=== PATIENT | female | born 1960 | race African-American/Black ===

== ENCOUNTER 2024-08-27 19:31 | Emergency (ER) | payer SELFPAY ==
[~2024-08-27] VITALS: Ht 167.6 cm; Wt 82.7 kg
[2024-08-27] MEDS ORDERED: daflon PO (19:46)
[2024-08-27] MEDS ORDERED: ATOR1TAB19 PO (19:46)
[2024-08-27] MEDS ORDERED: ATEN50TA2 PO (19:46)
[2024-08-28] MEDS ORDERED: ATOR1TAB19 PO (02:43)
[2024-08-28] MEDS ORDERED: ATEN50TA2 PO (02:43)
[2024-08-28 02:56] LABS: BASO % 0.3 % (0.0-1.0); EOS # 0.1 10^3/uL (0.0-0.5); EOS % 0.5 % (0.0-3.0); HEMATOCRIT 42.7 % (36.0-47.0); HEMOGLOBIN 14.4 g/dl (12.0-15.5); LYMPH % 21.4 % (24.0-44.0); MEAN CORPUSCULAR HEMOGLOBIN 31.5 pg (27.0-33.0); MEAN CORPUSCULAR HGB CONC 33.7 g/dl (32.0-36.5); MEAN CORPUSCULAR VOLUME 93.4 fl (80.0-96.0); MONO # 0.9 10^3/uL (0.0-0.8); NEUTROPHILS # 6.4 10^3/uL (1.5-8.5); NEUTROPHILS % 67.6 % (36.0-66.0); PLATELET COUNT, AUTOMATED 214 10^3/uL (150-450); RED BLOOD COUNT 4.57 10^6/uL (4.00-5.40); WHITE BLOOD COUNT 9.4 10^3/uL (4.0-10.0)
[2024-08-28] MEDS: LABETALOL 100MG/20ML VIAL IV STA (02:59)
[2024-08-28 03:17] LABS: BILIRUBIN,DIRECT 0.2 MG/DL (<0.4); BILIRUBIN,TOTAL 0.6 MG/DL (0.3-1.2); CK-MB VALUE MASS 1.8 NG/ML (<3.6); TOTAL PROTEIN 7.7 G/DL (5.7-8.2)
[2024-08-28 03:29] LABS: MB/CK RELATIVE INDEX 0.44 (< OR =4)
[2024-08-28 04:06] VITALS: BP 176/97
[2024-08-28] MEDS: atenoloL 25 MG TAB PO ONE (04:06)
[2024-08-28 05:13] LABS: APPEARANCE, URINE CLEAR (CLEAR); BACTERIA, URINE AUTO NEGATIVE (NEGATIVE); BILIRUBIN, URINE AUTO NEGATIVE (NEGATIVE); BLOOD, URINE BLOOD NEGATIVE (NEGATIVE); COLOR, URINE STRAW (YELLOW); GLUCOSE, URINE (UA) AUTO NEGATIVE (NEGATIVE); KETONE, URINE AUTO NEGATIVE (NEGATIVE); LEUKOCYTE ESTERASE, URINE AUTO NEGATIVE (NEGATIVE); NITRITE, URINE AUTO NEGATIVE (NEGATIVE); PROTEIN, URINE AUTO NEGATIVE (NEGATIVE); RBC, URINE AUTO 1 /HPF (0-3); SPECIFIC GRAVITY URINE AUTO 1.004 (1.002-1.035); SQUAMOUS EPITHELIAL CELL UR AU 0 /HPF (0-6); UROBILINOGEN, URINE AUTO 0.2 mg/dL (0.0-2.0); WBC, URINE AUTO 1 /HPF (0-3)
[2024-08-28 05:14] VITALS: BP 153/89; TEMP 96.8; O2SAT 100
== END 2024-08-28 05:05 | disposition home or self-care (01) ==
LOC: M ED 19:31
DX: I16.0 Hypertensive urgency (principal); E78.5 Hyperlipidemia, unspecified; Z79.899 Other long term (current) drug therapy
CPT/HCPCS: 70450; 80047; 80076; 81001; 82550; 82553; 84484; 85025; 93005; 96374; 99284; J1920